=== PATIENT | male | born 1935 | race Caucasian/White ===

== ENCOUNTER 2017-01-02 09:43 | Outpatient (CLI) | payer MEDICARE, OTHER ==
[2017-01-02 10:13] LABS: Hemoglobin A1c 5.5 % (4.0-6.0)
[2017-01-02 10:26] LABS: ALT (SGPT) 19 U/L (8-55); AST (SGOT) 23 U/L (5-34); Albumin 3.9 g/dL (3.4-4.8); Alkaline Phosphatase 58 U/L (40-150); Anion Gap 13 mmol/L (10-20); BUN (Urea Nitrogen) 20 mg/dL (8.4-25.7); Bilirubin, Direct 0.2 mg/dL (0.1-0.3); Bilirubin, Total 0.5 mg/dL (0.2-1.2); Calc. Creatinine Clearance 0 mL/min (70-130); Calcium 8.9 mg/dL (7.8-10.44); Carbon Dioxide 27 mmol/L (23-31); Cardiac Risk 2.4 (Less than 4.5); Chloride 103 mmol/L (98-107); Cholesterol 107 mg/dl (< 200 Desired); Estimated GFR-MDRD 64; Glucose 103 mg/dL (83-110); HDL Cholesterol 44 mg/dL (>60 Neg Risk); LDL Cholesterol, Calculated 42 mg/dL; Potassium 4.1 mmol/L (3.5-5.1); Protein, Total 6.8 g/dL (5.8-8.1); Sodium 139 mmol/L (136-145); Triglycerides 103 mg/dL (Less than 150)
== END 2017-01-02 09:44 | disposition home or self-care (01) ==
LOC: MADLABBHPM 09:43
PROVIDERS: ATTEND Family Medicine
DX: E78.5 Hyperlipidemia, unspecified (principal); E11.9 Type 2 diabetes mellitus without complications; I10 Essential (primary) hypertension
CPT/HCPCS: 36415; 80048; 80061; 80076; 83036

== ENCOUNTER 2017-01-04 19:55 | Emergency (ER) | payer MEDICARE, OTHER ==
[2017-01-04] MEDS ORDERED: Triple Antibiotic Oint 1 GM Packet ONE (20:16)
--- NOTE | 2017-01-04 20:41 | CT ---
CT BRAIN 01/04/17 HISTORY: Trauma. Noncontrast enhanced CT images of the brain obtained. There is a small left supraorbital hematoma se en. No evidence of obvious calvarial fracture seen. There is cortical atrophy and some deep white matter ischemic changes seen. No evidence of acute int racranial hemorrhages, masses or lesions seen. IMPRESSION: Left supraorbital hematoma, otherwise unremarkable CT brain. POS: [facility]
== END 2017-01-04 21:05 | disposition home or self-care (01) ==
LOC: MADERS 19:55
DX: S00.03XA Contusion of scalp, initial encounter (principal); S40.012A Contusion of left shoulder, initial encounter; S90.812A Abrasion, left foot, initial encounter; S00.81XA Abrasion of other part of head, initial encounter; Z79.84 Long term (current) use of oral hypoglycemic drugs; Z79.899 Other long term (current) drug therapy; V89.2XXA Person injured in unspecified motor-vehicle accident, traffic, initial encounter
CPT/HCPCS: 70450

== ENCOUNTER 2017-08-31 13:53 | Outpatient (CLI) | payer MEDICARE, OTHER ==
[2017-09-01 13:40] LABS: %Eosinophils 2.7 % (0.0-10.0); %Lymphocytes 17.2 % (21.0-51.0); %Monocytes 10.4 % (0.0-10.0); Hemoglobin 11.9 g/dL (14.0-18.0); Mean Corpuscular HGB CONC 33.1 g/dL (32.0-36.0); Mean Corpuscular Hemoglobin 32.5 pg (27.0-31.0); Mean Corpuscular Volume 98.3 fL (80.0-94.0); Mean Platelet Volume 7.2 fL (7.4-10.4); Platelet Count 183 thou/uL (130-400); RBC Distribution Width 12.7 % (11.5-14.5); Red Blood Cell (RBC) Count 3.67 mill/uL (4.70-6.10); White Blood Cell (WBC) Count 8.6 thou/uL (4.8-10.8)
[2017-09-01 13:41] LABS: #Basophils 0.1 thou/uL (0.0-0.2); #Eosinphils 0.2 thou/uL (0.0-0.7); #Lymphocytes 1.5 thou/uL (1.20-3.40); #Monocytes 0.9 thou/uL (0.11-0.59); #Neutrophils 5.9 thou/uL (1.40-6.50); %Basophils 0.7 % (0.0-1.0)
[2017-09-01 13:44] LABS: Sodium 142 mmol/L (136-145)
[2017-09-01 13:45] LABS: Carbon Dioxide 27 mmol/L (23-31); Chloride 105 mmol/L (98-107); Potassium 4.9 mmol/L (3.5-5.1)
[2017-09-01 13:46] LABS: Albumin 3.9 g/dL (3.4-4.8); Anion Gap 25 mmol/L (10-20); BUN (Urea Nitrogen) 30 mg/dL (8.4-25.7); Bilirubin, Total 0.3 mg/dL (0.2-1.2); Calc. Creatinine Clearance 0 mL/min (70-130); Calcium 8.7 mg/dL (7.8-10.44); Cholesterol 86 mg/dL (< 200 Desired); Estimated GFR-MDRD 60; Globulin 2.5 g/dL (2.4-3.5); Glucose 100 mg/dL (83-110); Protein, Total 6.4 g/dL (5.8-8.1)
[2017-09-01 13:47] LABS: ALT (SGPT) 18 U/L (8-55); AST (SGOT) 18 U/L (5-34); Alkaline Phosphatase 60 U/L (40-150); HDL Cholesterol 32 mg/dL (>60 Neg Risk); Triglycerides 73 mg/dL (Less than 150)
[2017-09-01 13:50] LABS: Cardiac Risk 2.7 (Less than 4.5); LDL Cholesterol, Calculated 69 mg/dL
[2017-09-02 12:33] LABS: Hemoglobin A1c 5.9 % (4.0-6.0)
== END 2017-08-31 13:54 | disposition home or self-care (01) ==
LOC: MADLAB 13:53
PROVIDERS: ATTEND Family Medicine
DX: E11.9 Type 2 diabetes mellitus without complications (principal); I10 Essential (primary) hypertension; E78.5 Hyperlipidemia, unspecified
CPT/HCPCS: 80053; 80061; 83036; 84443; 85025

== ENCOUNTER 2018-10-23 19:07 | Emergency (ER) | payer MEDICARE, OTHER ==
[2018-10-23 19:39] LABS: #Basophils 0.1 thou/uL (0.0-0.2); #Lymphocytes 0.8 thou/uL (1.20-3.40); #Monocytes 1.1 thou/uL (0.11-0.59); #Neutrophils 13.1 thou/uL (1.40-6.50); %Basophils 0.5 % (0.0-1.0); %Eosinophils 0.2 % (0.0-10.0); %Lymphocytes 5.2 % (21.0-51.0); %Monocytes 7.1 % (0.0-10.0); Hemoglobin 14.8 g/dL (14.0-18.0); Mean Corpuscular HGB CONC 32.8 g/dL (32.0-36.0); Mean Corpuscular Hemoglobin 31.1 pg (27.0-31.0); Mean Corpuscular Volume 94.9 fL (78.0-98.0); Mean Platelet Volume 7.7 fL (7.4-10.4); Platelet Count 228 thou/uL (130-400); RBC Distribution Width 11.7 % (11.5-14.5); Red Blood Cell (RBC) Count 4.75 mill/uL (4.70-6.10); White Blood Cell (WBC) Count 15.1 thou/uL (4.8-10.8)
--- NOTE | 2018-10-23 19:48 | CT ---
FHead CT without contrast 10/23/2018: COMPARISON: 01/04/2017 HISTORY: Altered mental status TECHNIQUE: Axial CT imaging at 5 mm intervals from vertex through skull base without contrast FINDINGS: Imaged paranasal sinuses and mastoid air cells well-aerated. No displaced calvarial fractur e. There is atherosclerotic calcification of the cavernous carotid arteries. Stable cerebral volume l oss and evidence of small vessel disease. No intracranial hemorrhage, midline shift, or mass effect. IMPRESSION: No acute findings.
[2018-10-23 19:57] LABS: ALT (SGPT) 15 U/L (8-55); AST (SGOT) 20 U/L (5-34); Albumin 4.7 g/dL (3.4-4.8); Alkaline Phosphatase 83 U/L (40-150); Anion Gap 27 mmol/L (10-20); BUN (Urea Nitrogen) 40 mg/dL (8.4-25.7); Bilirubin, Total 0.7 mg/dL (0.2-1.2); Calc. Creatinine Clearance 0 mL/min (70-130); Calcium 10.1 mg/dL (7.8-10.44); Carbon Dioxide 17 mmol/L (23-31); Chloride 97 mmol/L (98-107); Estimated GFR-MDRD 33; Globulin 3.4 g/dL (2.4-3.5); Glucose 143 mg/dL (83-110); Potassium 4.6 mmol/L (3.5-5.1); Protein, Total 8.1 g/dL (5.8-8.1); Sodium 136 mmol/L (136-145)
[2018-10-23 20:02] LABS: Acetaminophen Less than 6.0 mcg/mL (10.0-30.0); Alcohol Less than 10 mg/dL (Less than 10); CK (CPK) 112 U/L (30-200); Salicylate Less than 8.0 mg/dL (15.0-30.0)
--- NOTE | 2018-10-23 20:02 | RAD ---
CHEST ONE VIEW: 10/23/18 COMPARISON: 08/13/13. HISTORY: Altered mental status. FINDINGS: There are sternotomy wires. Atherosclerosis of the aorta. Normal cardiac silhouette. Pulmonary vessel s and hilum are normal. No masses or consolidation. No pneumothorax or osseous abnormalities. IMPRESSION: 1. No acute cardiopulmonary process. 2. Atherosclerosis. POS: [facility]
[2018-10-23 20:15] LABS: CKMB 2.9 ng/mL (0-6.6)
[2018-10-23] MEDS ORDERED: Sodium Chloride 0.9% 100 ML ONE (20:22)
[2018-10-23] MEDS ORDERED: Aspirin 325 MG TAB ONE (20:22)
[2018-10-23] MEDS ORDERED: Piperacillin/Tazobactam 4.5 GM VIAL ONE (20:22)
[2018-10-23] MEDS ORDERED: Nitroglycerin 2% Ointment 1 INCH/1 GM Packet ONE (20:22)
[2018-10-23] MEDS ORDERED: Sodium Chloride 0.9% 1,000 ML ONE (20:22)
[2018-10-23] MEDS ORDERED: Sodium Chloride 0.9% 250 ML 250 ML ONE (20:23)
[2018-10-23 21:21] LABS: Bilirubin Small (Negative); Blood, Urine Trace (Negative); Clarity Clear (Clear); Glucose, Urine (Dipstick) Negative (Negative); Leukocyte Negative (Negative); Nitrite Negative (Negative); Protein, Urine (Dipstick) Trace mg/dL (Neg-Trace); Urobilinogen 0.2 mg/dL (0.2-1.0)
[2018-10-23 21:22] LABS: Base Excess-Venous -7.8 mmol/L (-2.0 to 3.0); CO2 Tension (PvCO2) 24.3 mmHg (40.0-50.0); Calcium, Ionized 0.98 mmol/L (See Comments:); Chloride 101 mmol/L (98-107); Hemoglobin - Calc 15.2 g/dL (14.0-18.0); O2 Tension (PvO2) 75.8 mmHg (35.0-45.0); Potassium 4.2 mmol/L (3.5-5.1); Sodium 132 mmol/L (138-145); T. Carbon Dioxide 15.7 mmol/L (22.0-28.0); pH (Venous) 7.398 (7.320-7.430); vO2 Saturation-calc 95.4 % (60.0-85.0)
[2018-10-23 21:28] LABS: Amphetamine Not Detected (NotDetected); Barbiturates Screen Not Detected (NotDetected); Benzodiazepine Screen Not Detected (NotDetected); Cocaine Metabolite Screen Not Detected (NotDetected); Medtox Control Line Valid? VALID (VALID); Methadone Not Detected (NotDetected); Methamphetamine Not Detected (NotDetected); Opiate Screen Not Detected (NotDetected); Oxycodone Screen Not Detected (NotDetected); Phencyclidine (PCP) Not Detected (NotDetected); THC/Cannabinoid Screen Not Detected (NotDetected); Tricyclic Screen Not Detected (NotDetected)
[2018-10-23 21:31] LABS: Bacteria/HPF Rare-Few HPF (None Seen); Hyaline Casts/LPF 4-6 HYALINE CAST LPF (0-3 Hyaline); RBC/HPF 0-3 HPF (0-3); Squamous Epithelial 0-3 HPF (0-3); WBC/HPF 0-3 HPF (0-3)
== END 2018-10-23 22:21 | disposition short-term general hospital (02) ==
LOC: MADERS 19:07
DX: R41.82 Altered mental status, unspecified (principal); N17.9 Acute kidney failure, unspecified; E86.0 Dehydration; R79.89 Other specified abnormal findings of blood chemistry; E87.2 Acidosis; F17.220 Nicotine dependence, chewing tobacco, uncomplicated; I10 Essential (primary) hypertension; I25.10 Atherosclerotic heart disease of native coronary artery without angina pectoris; E11.9 Type 2 diabetes mellitus without complications; E78.5 Hyperlipidemia, unspecified; F32.9 Major depressive disorder, single episode, unspecified; Z79.899 Other long term (current) drug therapy; Z79.82 Long term (current) use of aspirin; Z79.891 Long term (current) use of opiate analgesic
CPT/HCPCS: 51701; 70450; 71045; 80053; 80306; 80307; 81003; 81015; 82330; 82550; 82553; 82803; 83605; 84484; 85025; 87040; 87086; 93005; 96361; 96365; 96367; J2543; J3370; J3490; J7050

== ENCOUNTER 2018-10-29 19:07 | Inpatient (IN) | payer MEDICARE ==
[2018-10-29] MEDS ORDERED: Lantiseptic Ointment 130 GM JAR TOP PRN (23:55)
[2018-10-29] MEDS ORDERED: Acetaminophen 325 MG TAB PO PRN (23:58)
[2018-10-30 05:13] LABS: #Basophils 0.1 thou/uL (0.0-0.2); #Eosinphils 0.3 thou/uL (0.0-0.7); #Lymphocytes 1.2 thou/uL (1.20-3.40); #Monocytes 0.9 thou/uL (0.11-0.59); #Neutrophils 5.3 thou/uL (1.40-6.50); %Basophils 1.7 % (0.0-1.0); %Eosinophils 3.8 % (0.0-10.0); %Lymphocytes 15.4 % (21.0-51.0); %Monocytes 11.6 % (0.0-10.0); %Neutrophils 67.5 % (42.0-75.0); Hemoglobin 10.3 g/dL (14.0-18.0); Mean Corpuscular HGB CONC 33.9 g/dL (32.0-36.0); Mean Corpuscular Volume 94.5 fL (78.0-98.0); Mean Platelet Volume 7.3 fL (7.4-10.4); Platelet Count 189 thou/uL (130-400); RBC Distribution Width 11.7 % (11.5-14.5); Red Blood Cell (RBC) Count 3.23 mill/uL (4.70-6.10); White Blood Cell (WBC) Count 7.9 thou/uL (4.8-10.8)
[2018-10-30 05:25] LABS: ALT (SGPT) 38 U/L (8-55); AST (SGOT) 35 U/L (5-34); Albumin 3.7 g/dL (3.4-4.8); Alkaline Phosphatase 56 U/L (40-150); Anion Gap 11 mmol/L (10-20); BUN (Urea Nitrogen) 21 mg/dL (8.4-25.7); Bilirubin, Total 0.3 mg/dL (0.2-1.2); Calc. Creatinine Clearance 55 mL/min (70-130); Calcium 8.7 mg/dL (7.8-10.44); Carbon Dioxide 27 mmol/L (23-31); Chloride 103 mmol/L (98-107); Estimated GFR-MDRD 70; Globulin 2.3 g/dL (2.4-3.5); Glucose 136 mg/dL (83-110); Potassium 3.6 mmol/L (3.5-5.1); Sodium 137 mmol/L (136-145)
[2018-10-30] MEDS ORDERED: Venlafaxine HCl 37.5 MG TAB PO SCH (09:00)
[2018-10-30] MEDS: Carvedilol 6.25 MG TAB PO SCH ×2 (09:15→16:55)
[2018-10-30] MEDS: metFORMIN 500 MG TAB PO SCH ×2 (09:16→16:55)
[2018-10-30] MEDS: Aspirin 81 mg Enteric Coated Tablet PO SCH (09:16)
[2018-10-30] MEDS: Hydrochlorothiazide 25 MG TAB PO SCH (09:17)
[2018-10-30] MEDS: Heparin 5,000 UNITS/ML VIAL SC SCH ×2 (09:17→21:13)
[2018-10-30] MEDS: Lantiseptic Ointment 130 GM JAR TOP SCH ×2 (09:19→21:14)
[2018-10-30] MEDS: Venlafaxine XR 37.5 MG CAP PO SCH ×2 (09:20→21:15)
--- NOTE | 2018-10-30 13:47 | HP ---
CHIEF COMPLAINT: Weakness. HISTORY OF PRESENT ILLNESS: The patient is an 83-year-old white male, who has a history of hypertension, coronary artery disease, diabetes mellitus type 2, and coronary artery disease, has been asymptomatic. He lives alone in [place], [place], and has been independent of all his ADLs. He does have family members that do assist him when needed with his instrumental ADLs. History was obtained from his granddaughter, Concha Zimmerman, who has been intimately involved with his assistance and care, and also on review of the medical record. Concha said that the patient had been growing progressively weaker. Several days prior to his admission, they found that he was sleeping more and more, but when awake, he was appropriate and then on 10/25/2018, when Concha checked on him, he was very sleepy and very confused. It was discovered that the patient had been taking Tylenol PM instead of his regular Tylenol for number of days and she discovered that a bottle of 50 had been taken over probably about a week. Because of his lethargy and confusion, he was taken to the emergency room and admitted at [facility]. He was admitted there on 10/24 and remained there until 2018. The patient was found to have an acute metabolic encephalopathy, probably secondary to the continued daily use of the Tylenol PM. He initially was found to be dehydrated because he had not been eating and had experienced some decline in his renal function. His creatinine had gone up to 1.97. He was found to have a leukocytosis. He initially was started on IV antibiotics in the event that this was a picture of sepsis, but when no evidence of infection was found, the antibiotics were stopped. With IV hydration and within a few days, he markedly improved with correction of the leukocytosis and the renal function improved. He did develop some diarrhea while in the hospital that resolved and he had a fall in the hospital that was unwitnessed. He underwent a CT scan of the head, which showed no acute intracranial process. He continued to improve and his mental status markedly improved, where the confusion was much better. He was still at times a little agitated, but improving. He was left very weak and during his hospitalization, his blood pressure was elevated and he was started on amlodipine, which was a new medicine. The patient was left very weak and deconditioned and prompting his transfer to [facility] late on the evening of 10/29/2018. The patient was seen early on the morning of 10/30/2018. His granddaughter Concha Zimmerman was with him and was able to review with her his med list. The patient 's granddaughter said that in the hospital, he had a repeat episode of confusion because he had had medicines started that he had not been on, had been placed on Plavix, which was stopped. In review of his medicine list on the discharge summary, she said he is not on the Zofran. The ramipril 5 mg, he only takes once a day, and he was not on the amlodipine, but this was a new medicine started for the hypertension. The patient said he has done a lot better, but still weak and his mental status is getting back to normal. They are concerned about his ability to live alone after this episode, and after getting mixed up on the Tylenol and Tylenol PM, prompting this acute metabolic encephalopathy. This morning, the patient said he is doing a lot better and he really did have no complaints. PAST MEDICAL HISTORY: Hospitalized at [facility] from 10/24 10/29 for an acute metabolic encephalopathy, prompted by taking Tylenol PM over several days. This was complicated by dehydration and some mild prerenal azotemia, that had resolved. He has hypertension, coronary artery disease, for which he underwent a coronary artery bypass x2 years ago. He has hyperlipidemia, depression that has been controlled, diabetes mellitus type 2 that has been well controlled. His last hemoglobin A1c on 08/31/2017 was 5.8. This will be repeated. The patient has had low back surgery on two occasions. PRESENT MEDICINES: 1. Acetaminophen 325 mg two every 4 hours as needed. 2. Aspirin 81 mg daily. 3. Lipitor 40 mg daily. 4. Hydrochlorothiazide 25 mg daily. 5. Isosorbide mononitrate 30 mg daily. 6. Metformin 500 mg b.i.d. 7. Venlafaxine ER 75 mg b.i.d. 8. Coreg 6.25 mg b.i.d. 9. Ramipril 5 mg daily. 10. The patient was discharged on amlodipine 10 mg b.i.d., that was started in the hospital, but the patient had not been on this before. ALLERGIES: NO KNOWN ALLERGIES. REVIEW OF SYSTEMS: GENERAL: The patient said he is feeling fine. He has not had any recent weight gain or loss. No fever. HEAD AND NECK: No complaints. PULMONARY: The patient denies any cough or shortness of breath. CARDIOVASCULAR: The patient denies any chest pain. GASTROINTESTINAL: The patient said he has not had any nausea or vomiting. Few days ago, he did have some diarrhea that apparently has resolved. ENDOCRINE: No complaint. MUSCULOSKELETAL: No complaint. ACTIVITIES OF DAILY LIVING: Ordinarily, the patient is independent of all his ADLs. Since this hospitalization, he has been much weaker than usual and having a little more trouble getting walking, transferring. NEUROPSYCHIATRIC: The patient's confusion seemed to be much better and that he is getting back to his baseline. HABITS: Alcohol, the patient occasionally will have a drink. Tobacco, the patient is former smoker, but has not smoked for many years. He does dip snuff. SOCIAL HISTORY: The patient is a . The patient lives alone, but has family that looks in on him to assist with his care. PHYSICAL EXAMINATION: GENERAL: Shows an 83-year-old white male, who was lying in bed. He was alert and talkative, and appears comfortable, and in no distress. VITAL SIGNS: His temperature is 97.7, pulse 67, respirations 18, O2 saturation 98% on room air, blood pressure 122/60. His weight is 157. HEENT: Head, normocephalic and atraumatic. Eyes, pupils are equal, round, and reactive. Ears, TMs are clear. Nose, normal. Mouth and throat, normal. NECK: Carotids are equal and strong. No bruits. Thyroid not enlarged. LUNGS: Clear. HEART: Regular rate. No murmurs. The patient has a well-healed sternal incision. ABDOMEN: Soft. No organomegaly nor areas of tenderness. EXTREMITIES: There is no edema. SKIN: There is no rash. The patient has a little bruising and looks like a puncture site in the right infraclavicular region. NEUROLOGIC: The patient is alert and knows that he is in [place], knows the year, was not quite sure of the day. Also, knew who the president is, recognizes me and his granddaughter, and knows that he has recently been in the hospital. The patient has no focal weakness. IMPRESSION: 1. Generalized weakness and deconditioning with gait abnormality. a. Following recent hospitalization. b. Hospitalized at [facility] from 10/24 until 10/29/2018 for an acute metabolic encephalopathy secondary to Tylenol PM, repeated dosing in place a plain Tylenol, complicated by dehydration and prerenal azotemia. 2. Hypertension. 3. Coronary artery disease. a. Status post coronary artery bypass x2. b. Asymptomatic. 4. Hyperlipidemia. 5. Diabetes mellitus type 2, controlled. 6. Depression. a. Controlled. PLAN: The patient has been admitted to [facility] for purpose of PT and OT in an effort to improve his general strength, stabilize his gait, and increase his functional capabilities. Prior to this illness, he had been independent of his ADLs. Lab work this morning shows sodium 137, potassium of 3.6, BUN 21, creatinine 1.02, GFR 70, glucose 136, AST 35, ALT 38. H and H 10.3 and 30.5, white cell count 7900 with 68% segs, 15% lymphocytes, and platelet count of 189,000. We will continue his DVT prophylaxis with Lovenox. The patient per discharge summary indicated that he was discharged on metoprolol and also Coreg, both beta-blockers. In clarification, he had not been on the metoprolol according to his granddaughter, Concha. This will be stopped. He previously had not been on amlodipine. We will this reduce his dose to 5 mg since his blood pressure was elevated while at the hospital at [facility]. Job ID: [id number] MTDD
[2018-10-30] MEDS: Atorvastatin Calcium 10 MG TAB PO SCH (21:13)
[2018-10-31 05:44] LABS: #Basophils 0.1 thou/uL (0.0-0.2); #Eosinphils 0.3 thou/uL (0.0-0.7); #Lymphocytes 1.1 thou/uL (1.20-3.40); #Monocytes 1.1 thou/uL (0.11-0.59); #Neutrophils 6.1 thou/uL (1.40-6.50); %Basophils 0.7 % (0.0-1.0); %Lymphocytes 13.3 % (21.0-51.0); %Monocytes 12.2 % (0.0-10.0); %Neutrophils 70.8 % (42.0-75.0); Mean Corpuscular HGB CONC 34.1 g/dL (32.0-36.0); Mean Corpuscular Hemoglobin 32.1 pg (27.0-31.0); Mean Corpuscular Volume 94.1 fL (78.0-98.0); Mean Platelet Volume 6.5 fL (7.4-10.4); Platelet Count 198 thou/uL (130-400); Red Blood Cell (RBC) Count 3.11 mill/uL (4.70-6.10); White Blood Cell (WBC) Count 8.6 thou/uL (4.8-10.8)
[2018-10-31 05:58] LABS: Anion Gap 12 mmol/L (10-20); BUN (Urea Nitrogen) 31 mg/dL (8.4-25.7); Calc. Creatinine Clearance 51 mL/min (70-130); Calcium 8.4 mg/dL (7.8-10.44); Carbon Dioxide 27 mmol/L (23-31); Chloride 105 mmol/L (98-107); Estimated GFR-MDRD 63; Glucose 158 mg/dL (83-110); Potassium 4.1 mmol/L (3.5-5.1); Sodium 140 mmol/L (136-145)
[2018-10-31] MEDS: metFORMIN 500 MG TAB PO SCH ×2 (07:31→16:10)
[2018-10-31] MEDS: Carvedilol 6.25 MG TAB PO SCH ×2 (07:31→16:10)
[2018-10-31] MEDS: Heparin 5,000 UNITS/ML VIAL SC SCH ×2 (08:20→21:01)
[2018-10-31] MEDS: Aspirin 81 mg Enteric Coated Tablet PO SCH (08:20)
[2018-10-31] MEDS: Lantiseptic Ointment 130 GM JAR TOP SCH ×2 (08:24→21:03)
[2018-10-31] MEDS: Venlafaxine XR 37.5 MG CAP PO SCH ×2 (08:24→21:03)
[2018-10-31] MEDS: Hydrochlorothiazide 25 MG TAB PO SCH (08:24)
[2018-10-31 08:29] VITALS: BMI 23.9
[2018-10-31 12:30] LABS: Hemoglobin A1c 6.3 % (4.0-6.0)
--- NOTE | 2018-10-31 15:39 | PRG ---
DATE OF SERVICE: 10/31/2018 SUBJECTIVE: The patient said he is feeling better today. He denies any shortness of breath or chest pain. His daughter, Salena Farley, is with him. She said that once he is ready to go home, she plans on moving him in with she and her to help him. The patient had no complaint today. OBJECTIVE: GENERAL: The patient looks better. He appears in no distress. VITAL SIGNS: His temperature is 96.9, pulse 63, respirations 18, O2 saturation 96% on room air, blood pressure 150/67. LUNGS: Clear. HEART: Regular rate. EXTREMITIES: No edema. LABORATORY DATA: Shows an H and H of 10 and 29.3, with white blood cell count of 8600 with 71% segs, 13% lymphocytes, and platelet count of 198,000. Sodium 140, potassium 4.1, BUN 31, creatinine 1.1, GFR 163, glucose 158. Hemoglobin A1c is 6.3. ASSESSMENT: 1. Generalized weakness and deconditioning with gait abnormality. a. Following recent hospitalization. b. Hospitalized at [facility] from 10/24 until 10/29/2018 for an acute metabolic encephalopathy secondary to Tylenol PM, repeated dosing in place a plain Tylenol, complicated by dehydration and prerenal azotemia. c. Improved as of 10/31/2018. 2. Hypertension. 3. Coronary artery disease. a. Status post coronary artery bypass x2. b. Asymptomatic. 4. Hyperlipidemia. 5. Diabetes mellitus type 2, controlled. a. Well-controlled hemoglobin A1c of 6.3 on 10/31/2018. 6. Depression. a. Controlled. PLAN: Continue present care. Continue PT and OT. Job ID: [id number] MTDD
[2018-10-31] MEDS: Atorvastatin Calcium 10 MG TAB PO SCH (21:00)
[2018-11-01] MEDS: Hydrochlorothiazide 25 MG TAB PO SCH (07:49)
[2018-11-01] MEDS: metFORMIN 500 MG TAB PO SCH ×2 (07:49→16:57)
[2018-11-01] MEDS: Carvedilol 6.25 MG TAB PO SCH ×2 (07:49→16:57)
[2018-11-01] MEDS: Venlafaxine XR 37.5 MG CAP PO SCH ×2 (07:49→20:12)
[2018-11-01] MEDS: Aspirin 81 mg Enteric Coated Tablet PO SCH (07:49)
[2018-11-01] MEDS: Lantiseptic Ointment 130 GM JAR TOP SCH ×2 (07:50→20:13)
[2018-11-01] MEDS: Heparin 5,000 UNITS/ML VIAL SC SCH ×2 (07:50→20:14)
[2018-11-01] MEDS: Atorvastatin Calcium 10 MG TAB PO SCH (20:12)
[2018-11-02] MEDS: Carvedilol 6.25 MG TAB PO SCH ×2 (08:17→16:45)
[2018-11-02] MEDS: Venlafaxine XR 37.5 MG CAP PO SCH ×2 (08:17→21:02)
[2018-11-02] MEDS: Aspirin 81 mg Enteric Coated Tablet PO SCH (08:17)
[2018-11-02] MEDS: metFORMIN 500 MG TAB PO SCH ×2 (08:17→16:45)
[2018-11-02] MEDS: Hydrochlorothiazide 25 MG TAB PO SCH (08:17)
[2018-11-02] MEDS: Heparin 5,000 UNITS/ML VIAL SC SCH ×2 (08:18→21:02)
[2018-11-02] MEDS: Lantiseptic Ointment 130 GM JAR TOP SCH ×2 (08:19→21:02)
[2018-11-02] MEDS: Atorvastatin Calcium 10 MG TAB PO SCH (21:01)
[2018-11-03] MEDS: metFORMIN 500 MG TAB PO SCH ×2 (07:39→17:09)
[2018-11-03] MEDS: Carvedilol 6.25 MG TAB PO SCH ×2 (07:39→17:09)
--- NOTE | 2018-11-03 08:16 | PRG ---
DATE OF SERVICE: 11/01/2018 SUBJECTIVE: The patient said he is feeling better. He is working with Physical Therapy. Yesterday morning, he walked 150 feet, in the afternoon 400 feet with his rolling walker and caregiver assist. He is requiring just standby assistance on his transfers. OBJECTIVE: GENERAL: The patient is alert, appears comfortable, in no distress. VITAL SIGNS: His temperature is 96.9, pulse 60, respirations 16, O2 saturation 99%, blood pressure 137/65. LUNGS: Clear. HEART: Regular rate. EXTREMITIES: No edema. LABORATORY DATA: FBS this morning 150. ASSESSMENT: 1. Generalized weakness and deconditioning with gait abnormality. a. Following recent hospitalization. b. Hospitalized at [facility] from 10/24 until 10/29/2018 for an acute metabolic encephalopathy secondary to Tylenol PM, repeated dosing in place a plain Tylenol, complicated by dehydration and prerenal azotemia. c. Improved. Walking up to 150 to 400 feet with a rolling walker and standby assistance. Transferring with standby assistance as of 11/01/2018. 2. Hypertension. 3. Coronary artery disease. a. Status post coronary artery bypass x2. b. Asymptomatic. 4. Hyperlipidemia. 5. Diabetes mellitus type 2, controlled. a. Well-controlled hemoglobin A1c of 6.3 on 10/31/2018. 6. Depression. a. Controlled. PLAN: Continue present care. Continue PT. Job ID: [id number] MTDD
[2018-11-03] MEDS: Hydrochlorothiazide 25 MG TAB PO SCH (08:54)
[2018-11-03] MEDS: Venlafaxine XR 37.5 MG CAP PO SCH ×2 (08:54→20:19)
[2018-11-03] MEDS: Aspirin 81 mg Enteric Coated Tablet PO SCH (08:54)
[2018-11-03] MEDS: Lantiseptic Ointment 130 GM JAR TOP SCH ×2 (08:55→20:21)
[2018-11-03] MEDS: Heparin 5,000 UNITS/ML VIAL SC SCH (08:59)
[2018-11-03] MEDS: Atorvastatin Calcium 10 MG TAB PO SCH (20:17)
[2018-11-04] MEDS: metFORMIN 500 MG TAB PO SCH ×2 (08:21→16:52)
[2018-11-04] MEDS: Carvedilol 6.25 MG TAB PO SCH ×2 (08:21→16:52)
[2018-11-04] MEDS: Aspirin 81 mg Enteric Coated Tablet PO SCH (08:21)
[2018-11-04] MEDS: Hydrochlorothiazide 25 MG TAB PO SCH (08:21)
[2018-11-04] MEDS: Lantiseptic Ointment 130 GM JAR TOP SCH ×2 (08:22→20:37)
[2018-11-04] MEDS: Venlafaxine XR 37.5 MG CAP PO SCH ×2 (08:22→20:37)
--- NOTE | 2018-11-04 10:45 | PRG ---
DATE OF SERVICE: 11/04/2018 SUBJECTIVE: The patient thinks he is doing good. He is getting up easier. He is walking further. He is working with Physical Therapy and yesterday he walked 200 feet twice and 500 feet once with a rolling walker. He is transferring, which is caregiver assist. He has had no shortness of breath or chest pain. He was having a lot of bruising from the DVT prophylaxis with heparin from the shots in the abdomen that were stopped. OBJECTIVE: GENERAL: The patient is alert, appears comfortable, in no distress. VITAL SIGNS: Showed a temperature of 97.4, pulse 58, respirations 20, O2 saturation 98%, and blood pressure 119/56. LUNGS: Clear. HEART: Regular rate. EXTREMITIES: No edema. LABORATORY DATA: FBS this morning was 170. Hemoglobin A1c on 10/31 was 6.3. ASSESSMENT: 1. Generalized weakness and deconditioning with gait abnormality. a. Following recent hospitalization. b. Hospitalized at [facility] from 10/24 until 10/29/2018 for an acute metabolic encephalopathy secondary to Tylenol PM, repeated dosing in place a plain Tylenol, complicated by dehydration and prerenal azotemia. c. Improved. Walking up to 200 to 500 feet with his rolling walker and standby assistance. Transferring with standby assistance as of 11/04/2018. 2. Hypertension. 3. Coronary artery disease. a. Status post coronary artery bypass x2. b. Asymptomatic. 4. Hyperlipidemia. 5. Diabetes mellitus type 2, controlled. a. Well-controlled hemoglobin A1c of 6.3 on 10/31/2018. 6. Depression. a. Controlled. PLAN: Overall, the patient continues to improve. We will continue PT, OT. Job ID: [id number] MTDD
[2018-11-04] MEDS: Atorvastatin Calcium 10 MG TAB PO SCH (20:36)
[2018-11-05] MEDS: Hydrochlorothiazide 25 MG TAB PO SCH (08:25)
[2018-11-05] MEDS: Venlafaxine XR 37.5 MG CAP PO SCH ×2 (08:25→20:51)
[2018-11-05] MEDS: Carvedilol 6.25 MG TAB PO SCH ×2 (08:25→16:48)
[2018-11-05] MEDS: Lantiseptic Ointment 130 GM JAR TOP SCH ×2 (08:25→20:50)
[2018-11-05] MEDS: Aspirin 81 mg Enteric Coated Tablet PO SCH (08:25)
[2018-11-05] MEDS: metFORMIN 500 MG TAB PO SCH ×2 (08:25→16:48)
--- NOTE | 2018-11-05 11:30 | PRG ---
DATE OF SERVICE: 11/05/2018 SUBJECTIVE: The patient said he is doing good. He is doing better with his walking transfer. He has noticed that he is urinating a little more often, but not having any dysuria. OBJECTIVE: GENERAL: The patient is alert, appears in no distress. VITAL SIGNS: His temp is 97.9, pulse 68, respirations 16, O2 saturation 96% on room air, blood pressure 120/52. His weight was 170. LUNGS: Clear. HEART: Regular rate. EXTREMITIES: No edema. ASSESSMENT: 1. Generalized weakness and deconditioning with gait abnormality. a. Following recent hospitalization. b. Hospitalized at [facility] from 10/24 until 10/29/2018 for an acute metabolic encephalopathy secondary to Tylenol PM, repeated dosing in place a plain Tylenol, complicated by dehydration and prerenal azotemia. c. Improved. Walking up to 200 to 500 feet with his rolling walker and standby assistance. Transferring with standby assistance as of 11/05/2018. 2. Hypertension. 3. Coronary artery disease. a. Status post coronary artery bypass x2. b. Asymptomatic. 4. Hyperlipidemia. 5. Diabetes mellitus type 2, controlled. a. Well-controlled hemoglobin A1c of 6.3 on 10/31/2018. 6. Depression. a. Controlled. PLAN: Continue present care. Arrangements being made for him to be discharged soon. He will be going home with his daughter, Salena Leonard. We will check a UA due to the frequent urination, ensure there is no infection. Job ID: [id number] MTDD
[2018-11-05 14:05] LABS: Bilirubin Negative (Negative); Blood, Urine Trace (Negative); Clarity Clear (Clear); Glucose, Urine (Dipstick) Negative (Negative); Leukocyte Negative (Negative); Nitrite Negative (Negative); Protein, Urine (Dipstick) 100 mg/dL (Neg-Trace); Urobilinogen 0.2 mg/dL (0.2-1.0); pH, Urine 5.5 (5.0-9.0)
[2018-11-05 14:22] LABS: Bacteria/HPF Rare-Few HPF (None Seen); Other Casts/LPF 4-6 MIXED CASTS LPF (0-3 Hyaline); Squamous Epithelial 0-3 HPF (0-3); Transitional Epithelial 0-3 HPF (0-3); WBC/HPF None Seen HPF (0-3); Yeast-All Forms 1+ HPF (None Seen)
[2018-11-05] MEDS: Atorvastatin Calcium 10 MG TAB PO SCH (20:50)
[2018-11-06] MEDS: Aspirin 81 mg Enteric Coated Tablet PO SCH (08:17)
[2018-11-06] MEDS: Venlafaxine XR 37.5 MG CAP PO SCH ×2 (08:18→20:39)
[2018-11-06] MEDS: Carvedilol 6.25 MG TAB PO SCH ×2 (08:18→17:02)
[2018-11-06] MEDS: metFORMIN 500 MG TAB PO SCH ×2 (08:18→17:02)
[2018-11-06] MEDS: Lantiseptic Ointment 130 GM JAR TOP SCH ×2 (08:18→20:38)
[2018-11-06] MEDS: Hydrochlorothiazide 25 MG TAB PO SCH (08:18)
--- NOTE | 2018-11-06 10:04 | PRG ---
DATE OF SERVICE: 11/06/2018 SUBJECTIVE: The patient thinks he is doing better with his therapy. He is not having any trouble with his breathing. He said he still noticed that he is having to urinate more frequently than usual. OBJECTIVE: GENERAL: The patient is lying in bed, alert, appears very comfortable and in no distress. VITAL SIGNS: His temp is 97.8, pulse 67, respirations 18, O2 saturation 96% on room air, blood pressure 131/62. LUNGS: Clear. HEART: Regular rate. EXTREMITIES: No edema. LABORATORY DATA: Urinalysis collected yesterday showed 4 to 6 rbc's, no wbc's seen, nitrite negative, specific gravity 1.020. ASSESSMENT: 1. Generalized weakness and deconditioning with gait abnormality. a. Following recent hospitalization. b. Hospitalized at [facility] from 10/24 until 10/29/2018 for an acute metabolic encephalopathy secondary to Tylenol PM, repeated dosing in place a plain Tylenol, complicated by dehydration and prerenal azotemia. c. Improved. Walking up to 200 to 500 feet with his rolling walker and standby assistance. Transferring with standby assistance as of 11/06/2018. 2. Hypertension. 3. Coronary artery disease. a. Status post coronary artery bypass x2. b. Asymptomatic. 4. Hyperlipidemia. 5. Diabetes mellitus type 2, controlled. a. Well-controlled hemoglobin A1c of 6.3 on 10/31/2018. 6. Depression. a. Controlled. PLAN: The patient overall is doing better. We will try reducing his hydrochlorithiazide from 25 mg a day to 12.5 mg a day, and see if this will help some with the urinary frequency. There is no evidence of any urinary tract infection. The patient said that family is making preparation for his discharge tomorrow, 11/07. Job ID: [id number] MTDD
[2018-11-06] MEDS: Atorvastatin Calcium 10 MG TAB PO SCH (20:38)
[2018-11-07 07:24] VITALS: BP 123/56; TEMP 98.6
[2018-11-07] MEDS: Venlafaxine XR 37.5 MG CAP PO SCH (08:38)
[2018-11-07] MEDS: Aspirin 81 mg Enteric Coated Tablet PO SCH (08:38)
[2018-11-07] MEDS: Lantiseptic Ointment 130 GM JAR TOP SCH (08:39)
[2018-11-07] MEDS: metFORMIN 500 MG TAB PO SCH (08:39)
[2018-11-07] MEDS: Carvedilol 6.25 MG TAB PO SCH (08:39)
[2018-11-07] MEDS ORDERED: Hydrochlorothiazide 25 MG TAB PO SCH (09:00)
== END 2018-11-07 11:18 | disposition home or self-care (01) | DRG 93 ==
LOC: MADMS 22:06
PROVIDERS: ADMIT Family Medicine; ATTEND Family Medicine
DX: G92 Toxic encephalopathy (principal); T39.1X5A Adverse effect of 4-Aminophenol derivatives, initial encounter; I10 Essential (primary) hypertension; I25.10 Atherosclerotic heart disease of native coronary artery without angina pectoris; E11.9 Type 2 diabetes mellitus without complications; E78.5 Hyperlipidemia, unspecified; F32.9 Major depressive disorder, single episode, unspecified; E86.0 Dehydration; R79.89 Other specified abnormal findings of blood chemistry; R26.9 Unspecified abnormalities of gait and mobility; R35.0 Frequency of micturition
CPT/HCPCS: 36415; 36416; 80048; 80053; 81001; 83036; 85025; J1644